=== PATIENT | male | born 1970 | race Caucasian/White ===

== ENCOUNTER 2020-11-18 11:36 | Emergency (ER) | payer BC, SELFPAY ==
[2020-11-18 11:44] VITALS: BP 135/80; PULSE 85; RESP 16; TEMP 36.8; O2SAT 98; BMI 29.8
--- NOTE | 2020-11-18 12:20 | ECG_ITS ---
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
--- NOTE | 2020-11-18 12:20 | XRR_ITS ---
PROCEDURE INFORMATION: Exam: XR Chest Exam date and time: 11/18/2020 12:24 PM Age: 50 years old Clinical indication: Shortness of breath; Chest pain; Type not specified; Additional info: Cp TECHNIQUE: Imaging protocol: XR of the chest Views: 1 view. COMPARISON: CT Chest/Abdomen/Pelvis w IV* 03/14/2018 2:06 PM FINDINGS: Lungs: Hypoinflation and mild interstitial prominence without acute airspace disease. Pleural spaces: No pleural effusion. Heart/Mediastinum: No cardiomegaly. Bones/joints: Mild degenerative change. XR/XR chest 1V portable [id number] IMPRESSION: No acute airspace or pleural disease.
--- NOTE | 2020-11-18 12:23 | W.ED.CHESTPA ---
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 The day after which is yesterday noticed left-sided chest pain radiating down his arm and his shoulder that he attributed to the chest compressions that he had done. However he also noticed some dizziness, lightheadedness, and the pain is getting worse. The pain is also only on the left and is not on the right which she would have expected that he would be bilateral for his chest compressions. He was recently diagnosed with diabetes mellitus and was started on Metformin. He therefore wants to be evaluated. MD complaint: chest pain Onset (ago): day(s) (1) Timing of current episode: episodic Prior episodes: Yes Onset: during rest Pain location: left chest Pain radiation: left shoulder and other (left ear) Severity: moderate Quality: sharp Relieving factors: nothing Exacerbating factors: nothing Associated symptoms: Reports dyspnea; Deny abdominal pain, diaphoresis, fever(s), leg edema, nausea, palpitations, sense of impending doom, syncope or vomiting Review of Systems General: Reports: 10 or more systems reviewed and unremarkable except in HPI and below Const: Denies: fever(s) or diaphoresis Card: Denies: palpitations or syncope Resp: Reports: dyspnea GI: Denies: abdominal pain, nausea or vomiting Neuro: Reports: dizziness Physical Exam Const: COMMON NORMALS: no acute distress, average body habitus, patient oriented x3, no limitations, healthy appearing, alert and well nourished HENMT: COMMON NORMALS: normocephalic, atraumatic and moist oral mucous membranes HEAD & SCALP: normocephalic and atraumatic Neck/C-Spine: COMMON NORMALS: no meningeal signs and no JVD Chest: COMMONS NORMALS: normal inspection of the chest and normal palpation of entire chest wall Resp: COMMON NORMALS: normal respiratory effort, No retractions, No use of accessory muscles, clear to auscultation bilaterally and percussion normal AUSCULTATION: clear to auscultation bilaterally PERCUSSION: percussion normal Cardio: COMMON NORMALS: no JVD, regular rate, regular rhythm, S1 normal heart sound present, S2 normal heart sound present, No gallops present (Cardio), No clicks present (Cardio), No murmurs present (Cardio), No rub (Cardio) and Peripheral pulses 2+ throughout RATE: regular rate RHYTHM: regular rhythm HEART SOUNDS: S1 normal heart sound present and S2 normal heart sound present PERIPHERAL PULSES: Peripheral pulses 2+ throughout GI: COMMON NORMALS: Normal to inspection, nondistended, normoactive bowel sounds present, Soft to palpation, non-tender, No hepatosplenomegaly present, no masses and no bruits PALPATION: Yes Soft to palpation and Yes No hepatosplenomegaly present Extremity: COMMON NORMALS: normal to inspection, full ROM, capillary refill normal, no calf tenderness and no pedal edema Neuro: COMMON NORMALS: patient oriented x3 SENSORIUM/ORIENTATION: Yes alert MENINGEAL SIGNS: Yes no meningeal signs Skin: COMMON NORMALS: no rashes or lesions noted, no wounds, turgor normal, no jaundice, no petechiae and no mottling GENERAL SKIN EXAM: no rashes or lesions noted and turgor normal Course Reevaluation(s): Reevaluation #1: Discussed his labs and imaging findings with him, unremarkable with negative HS troponin x 2. HEART score is 2, low risk for a MACE with a 1.7% risk for a MACE. He is discharged home with no new orders, and to f/u with his PCP. He voiced understanding and all questions answered. Time: 16:18 Vital Signs: Vital signs: Vital Signs Temperature 98.2 F 11/18/20 11:44 Pulse Rate 97 11/18/20 16:43 Respiratory Rate 11 L 11/18/20 16:43 Blood Pressure 156/88 11/18/20 16:43 Pulse Oximetry 99 11/18/20 16:43 MDM - Chest Pain MDM Narrative: Medical decision making narrative: 50 year old male with chest pain. Evaluation in the ED was negative for a cardiac cause of his pain. He is discharged home with no new orders. Medical Records: Attestation: I reviewed the patient's medical records. Lab Data: Attestation: I reviewed the patient's lab results. Labs: Lab Results 11/18/20 11/18/20 11/18/20 Range/Units 12:00 12:00 12:00 WBC 5.3 (4.0-10.0) 10^3/ uL RBC 4.73 (4.1-5.3) 10^6/u L Hgb 14.3 (11.7-16.6) g/dL Hct 42.3 (42.0-52.0) % MCV 89.4 (80-94) fL MCH 30.2 (28.0-34.0) pg MCHC 33.8 (30.0-36.0) g/dL RDW 12.9 (12.1-15.1) % Plt Count 275 (130-400) 10^3/c mm MPV 10.1 (7.4-10.4) fL Neut % (Auto) 70.7 % Lymph % (Auto) 20.9 % [place] % (Auto) 6.2 % Eos % (Auto) 0.8 % Baso % (Auto) 0.8 % Neut # (Auto) 3.75 (1.8-7.7) 10^3/u L Lymph # (Auto) 1.1 (0.8-4.8) 10^3/u L [place] # (Auto) 0.3 (0.2-0.9) 10^3/u L Eos # (Auto) 0.0 (0.0-0.8) 10^3/u L Baso # (Auto) 0.0 (0.0-0.1) 10^3/u L Nucleated RBC % (a uto) 0 % Nucleated RBCs # 0.0 /100WBC PT 12.70 (12.1-14.9) SECO NDS INR 0.93 (0.8-1.2) D-Dimer <= 0.27 (0-0.59) ug/mIFE U Sodium 138 (136-145) mmol/L Potassium 4.5 (3.5-5.1) mmol/L Chloride 101 (98-107) mmol/L Carbon Dioxide 26 (22-29) mmol/L Anion Gap 15.5 (5-19) BUN 16 (6-20) mg/dL Creatinine 1.0 (0.7-1.2) mg/dL GFR Calculation 79.8 L (90-130) mL/min Glucose 118 H (65-115) mg/dL Calculated Osmolal ity 288 (285-295) mOsm/k g Calcium 9.5 (8.5-10.5) mg/dL Total Bilirubin 0.4 (0.15-1.2) mg/dL AST 20 (0-40) U/L ALT 41 (0-41) U/L Alkaline Phosphata se 99 (40-130) IU/L Troponin T Baselin e (0-15) ng/L Troponin T 120 Min [place] (0-15) ng/L Delta Troponin T (0-10) ABS# NT-Pro-B Natriuret Pep 42 (0-125) pg/mL Total Protein 7.5 (6.6-8.7) g/dL Albumin 5.0 (3.5-5.2) g/dL Globulin 2.5 (1.3-4.6) g/dL Lipase 37 (13-60) U/L 11/18/20 11/18/20 Range/Units 12:00 13:58 WBC (4.0-10.0) 10^3/ uL RBC (4.1-5.3) 10^6/u L Hgb (11.7-16.6) g/dL Hct (42.0-52.0) % MCV (80-94) fL MCH (28.0-34.0) pg MCHC (30.0-36.0) g/dL RDW (12.1-15.1) % Plt Count (130-400) 10^3/c mm MPV (7.4-10.4) fL Neut % (Auto) % Lymph % (Auto) % [place] % (Auto) % Eos % (Auto) % Baso % (Auto) % Neut # (Auto) (1.8-7.7) 10^3/u L Lymph # (Auto) (0.8-4.8) 10^3/u L [place] # (Auto) (0.2-0.9) 10^3/u L Eos # (Auto) (0.0-0.8) 10^3/u L Baso # (Auto) (0.0-0.1) 10^3/u L Nucleated RBC % (a uto) % Nucleated RBCs # /100WBC PT (12.1-14.9) SECO NDS INR (0.8-1.2) D-Dimer (0-0.59) ug/mIFE U Sodium (136-145) mmol/L Potassium (3.5-5.1) mmol/L Chloride (98-107) mmol/L Carbon Dioxide (22-29) mmol/L Anion Gap (5-19) BUN (6-20) mg/dL Creatinine (0.7-1.2) mg/dL GFR Calculation (90-130) mL/min Glucose (65-115) mg/dL Calculated Osmolal ity (285-295) mOsm/k g Calcium (8.5-10.5) mg/dL Total Bilirubin (0.15-1.2) mg/dL AST (0-40) U/L ALT (0-41) U/L Alkaline Phosphata se (40-130) IU/L Troponin T Baselin e 6 (0-15) ng/L Troponin T 120 Min [place] 6.00 (0-15) ng/L Delta Troponin T 0 (0-10) ABS# NT-Pro-B Natriuret Pep (0-125) pg/mL Total Protein (6.6-8.7) g/dL Albumin (3.5-5.2) g/dL Globulin (1.3-4.6) g/dL Lipase (13-60) U/L Imaging Data^: CXR: Attestation: I personally reviewed and interpreted this imaging study as follows: Radiologist's impression: [address] [address] XRay Report Signed Patient: Rajesh Wilkins #: [id number] : 1970Acct#:[id number] Age/Sex: 50 / MADM Date: 11/18/20 Loc: ERRoom/Bed: Attending Dr: Ordering Provider/Ordering MD: Flavia Adams MD, [facility] [place] Date of Service: 11/18/20 Procedure(s): XR chest 1V portable [id number] Accession Number(s): [id number] Report Number: [id number] PROCEDURE INFORMATION: Exam: XR Chest Exam date and time: 11/18/2020 12:24 PM Age: 50 years old Clinical indication: Shortness of breath; Chest pain; Type not specified; Additional info: Cp TECHNIQUE: Imaging protocol: XR of the chest Views: 1 view. COMPARISON: CT Chest/Abdomen/Pelvis w IV* 03/14/2018 2:06 PM FINDINGS: Lungs: Hypoinflation and mild interstitial prominence without acute airspace disease. Pleural spaces: No pleural effusion. Heart/Mediastinum: No cardiomegaly. Bones/joints: Mild degenerative change. XR/XR chest 1V portable [id number] IMPRESSION: No acute airspace or pleural disease. Dictated By:Selvin Jose MD Signed By:Selvin Jose MDSigned Date/Time:11/18/201311 DD/ 131 EKG Data^: EKG 1: Attestation: I personally reviewed and interpreted this EKG as follows: EKG interpretation date: 11/18/20 EKG interpretation time: 11:43 Prior EKG tracings: not available for review Interpretation: Sinus rhythm. Heart rate 88 bpm. Normal axis. No ST changes. Normal EKG. Discharge Plan Discharge Patient Disposition: Home Clinical Impression: Chest pain Condition: Stable Prescriptions: Continued paroxetine HCl 10 mg tablet 10 mg PO DAILY RF: 0 metoprolol succinate 25 mg tablet extended release 24 hr 25 mg PO DAILY RF: 0 metformin 500 mg tablet extended release 24 hr 500 mg PO BEDTIME RF: 0 Discharge Orders: Discharge ED (Routine); Ordered 11/18/20 Ordered By: Flavia Adams Referrals: Benny Davis MD [Primary Care Provider] - 1-3 days Discharge Diet: Usual diet Discharge Activity: Increase activity as tolerated Patient Instructions: Chest Pain (ED) Activity Restrictions/Additional Instructions: Return for any new or worsening symptoms. Follow-up with your primary care provider within 3 days. You will be contacted to schedule an outpatient stress test. Following the results of the test might need further testing or you may be clear. Stand Alone Forms: Work/School Release Coding Level of Care Code ED Quill Machine Tender for Chg Fwd Exam Comprehensive
[2020-11-18 12:34] LABS: Basophils % 0.8 %; Eosinophils % 0.8 %; Hematocrit 42.3 % (42.0-52.0); Hemoglobin 14.3 g/dL (11.7-16.6); Lymphocytes # 1.1 10^3/uL (0.8-4.8); Lymphocytes % 20.9 %; Mean Corpuscular HGB Conc 33.8 g/dL (30.0-36.0); Mean Corpuscular Hemoglobin 30.2 pg (28.0-34.0); Mean Corpuscular Volume 89.4 fL (80-94); Mean Platelet Volume 10.1 fL (7.4-10.4); Monocytes # 0.3 10^3/uL (0.2-0.9); Monocytes % 6.2 %; Neutrophils # 3.75 10^3/uL (1.8-7.7); Neutrophils % 70.7 %; Nucleated Red Blood Cells % 0 %; Platelet Count 275 10^3/cmm (130-400); Red Blood Count 4.73 10^6/uL (4.1-5.3); Red Cell Distribution Width 12.9 % (12.1-15.1); White Blood Count 5.3 10^3/uL (4.0-10.0)
[2020-11-18 12:37] VITALS: BP 120/88; PULSE 88; RESP 12; O2SAT 97
[2020-11-18 12:53] LABS: INR 0.93 (0.8-1.2)
[2020-11-18 12:55] LABS: D Dimer <= 0.27 ug/mIFEU (0-0.59); Troponin(5th) Baseline 6 ng/L (0-15)
[2020-11-18 13:01] LABS: Alanine Aminotransferase 41 U/L (0-41); Alkaline Phosphatase 99 IU/L (40-130); Anion Gap 15.5 (5-19); Aspartate Amino Transferase 20 U/L (0-40); Blood Urea Nitrogen 16 mg/dL (6-20); Calcium 9.5 mg/dL (8.5-10.5); Carbon Dioxide 26 mmol/L (22-29); Chloride 101 mmol/L (98-107); Globulin 2.5 g/dL (1.3-4.6); Glomerular Filtration Rate 79.8 mL/min (90-130); Glucose 118 mg/dL (65-115); Lipase 37 U/L (13-60); NT Pro B Type Natriuretic Pept 42 pg/mL (0-125); Osmolality Calculated 288 mOsm/kg (285-295); Potassium 4.5 mmol/L (3.5-5.1); Sodium 138 mmol/L (136-145); Total Bilirubin 0.4 mg/dL (0.15-1.2); Total Protein 7.5 g/dL (6.6-8.7)
[2020-11-18 14:07] VITALS: BP 146/83; PULSE 78; RESP 16; O2SAT 97
[2020-11-18 14:32] LABS: Troponin 5 2HR Delta 0 ABS# (0-10)
[2020-11-18 16:41] VITALS: BP 156/88; PULSE 97; RESP 11; O2SAT 99
[2020-11-18 16:43] VITALS: BP 156/88; PULSE 97; RESP 11; O2SAT 99
--- NOTE | 2020-11-20 10:01 | DCPLANNER ---
financial institution branch manager had a message to schedule an outpatient stress test for patient. financial institution branch manager faxed signed order to centralized scheduling. financial institution branch manager will call for appointment information.
--- NOTE | 2020-11-25 09:24 | DCPLANNER ---
[employer] manager was contacted stating that patients insurance requires a peer to peer from the ER physician, for the stress test. [employer] manager contacted patient and let patient know that patient will need to follow up with his primary care physician, and have him order the stress test. Patient stated that the he would follow up with his primary care physician.
== END 2020-11-18 16:46 | disposition home or self-care (01) ==
PROVIDERS: Emergency Provider Family Medicine; PCP Family Medicine
DX: R07.9 Chest pain, unspecified (principal); Z79.84 Long term (current) use of oral hypoglycemic drugs
CPT/HCPCS: 36415; 71045; 80053; 83690; 83880; 84484; 85025; 85378; 85610; 93005; 99284; 99291

== ENCOUNTER → 2020-11-26 15:38 | Outpatient (BNVA) | payer BC, SELFPAY | PROVIDERS: PCP Family Medicine; Visit Provider Counselor Mental Health | DX: F43.10 Post-traumatic stress disorder, unspecified (principal) | CPT/HCPCS: 90791 ==

== ENCOUNTER → 2020-12-04 07:52 | Outpatient (BNVA) | payer BC, SELFPAY | PROVIDERS: PCP Family Medicine; Visit Provider Counselor Mental Health | DX: F43.11 Post-traumatic stress disorder, acute (principal) | CPT/HCPCS: 90834 ==

== ENCOUNTER → 2020-12-11 07:49 | Outpatient (BNVA) | payer BC, SELFPAY | PROVIDERS: PCP Family Medicine; Visit Provider Counselor Mental Health | DX: F43.11 Post-traumatic stress disorder, acute (principal) | CPT/HCPCS: 90834 ==

== ENCOUNTER → 2020-12-18 08:10 | Outpatient (BNVA) | payer BC, SELFPAY | PROVIDERS: PCP Family Medicine; Visit Provider Counselor Mental Health | DX: F43.11 Post-traumatic stress disorder, acute (principal); F43.21 Adjustment disorder with depressed mood | CPT/HCPCS: 90834 ==

== ENCOUNTER → 2020-12-24 07:41 | Outpatient (BNVA) | payer BC, SELFPAY | PROVIDERS: PCP Family Medicine; Visit Provider Counselor Mental Health | DX: F43.11 Post-traumatic stress disorder, acute (principal) | CPT/HCPCS: 90834 ==

== ENCOUNTER 2020-12-25 07:36 | Outpatient (CLI) | payer BC, SELFPAY ==
[2020-12-25 08:54] VITALS: BMI 28.4
--- NOTE | 2020-12-25 08:55 | ECG_ITS ---
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 Baseline heart rate was 81 beats per minute. Baseline blood pressure was 135/76 millimeters of mercury. Target heart rate was 172 beats per minute. Maximum heart rate achieved was 153, which was 88 % of the target heart rate. Maximum blood pressure was 202/94 millimeters of mercury. Total exercise time was 9 minutes 31 seconds. Maximum METs achieved was 10.2, maximum VO2 was 35.7. The reason for ending the test was maximum effort achieved. The patient complained of shortness of breath during the stress test, which then resolved at the end of the test. ELECTROCARDIOGRAM: BASELINE: Showed sinus rhythm, normal axis, no significant ST-T changes at the baseline noted. EXERCISE: At the peak exercise level, no significant ST-T changes suggestive of ischemia noted. RECOVERY: During the recovery period, heart rate dropped appropriately. No significant ST-T changes in the recovery suggestive of ischemia noted. CONCLUSION: 1. Exercise capacity good. 2. Heart rate response was appropriate. 3. Blood pressure response was hypertensive. 4. Symptoms not suggestive of ischemia. 5. Electrocardiogram portion of the stress test was not suggestive of ischemia. Electronically Signed On 01-06-2021 19:07:31 CDT by CIERRA VELIZ [id number]
--- NOTE | 2020-12-25 08:55 | NMCV_ITS ---
NM dionte perf SPECT r/s* [id number] Rajesh Wilkins Age: 50 Gender: M : 1970 Exam Date: 12/25/2020 09:07 Ordering Phys: Benny Davis MD Technologist: YAYA Shannon Exam Location: [facility] Indications: CHEST PAIN STRESS TEST Please see separate stress test report in [facility] for full findings IMAGE PROTOCOL Rest/Stress 1 Exercise Day Radiopharmaceutical Dose (mCi) Administration Site Administered by Rest: Tc-99m 10.9 IV YAYA Montes Sestamishamir Stress:Tc-99m 32.6 IV YAYA Montes Sestamibi Rest: 25-Dec-2020 60 Discovery 630 Stress: 25-Dec-2020 30 Discovery 630 Radiopharmaceutical was injected at 85 % maximum heart rate. Images obtained in supine and prone position. SPECT RESULTS Technical Quality: Excellent Raw Data Analysis: Normal Image Corrections: No attenuation or motion correction applied Summed Stress Score: 0 Summed Rest Score: 0 Summed Difference Score: 0 PERFUSION FINDINGS SPECT images demonstrate homogeneous tracer distribution throughout the myocardium. FUNCTIONAL RESULTS (calculated via Gated SPECT) Stress Image LV EF (%): 74 Stress EDV (mL):62 TID: 0.67 Stress ESV (mL):16 Rest Image LV EF (%): 74 FUNCTIONAL FINDINGS: There is normal left ventricular systolic function. IMPRESSIONS Myocardial perfusion imaging is normal and low probability for obstructive coronary disease. EKG segment will be documented separately. Jerardo Woodruff MD (Electronically Signed) Final Date: 25 Dec 2020 15:10 S
[2020-12-25 10:03] VITALS: BP 148/90; PULSE 94
== END 2020-12-25 07:37 | disposition home or self-care (01) ==
PROVIDERS: PCP Family Medicine; Visit Provider Family Medicine
DX: R07.9 Chest pain, unspecified (principal)
CPT/HCPCS: 78452; 93017; A9500

== ENCOUNTER → 2020-12-31 08:01 | Outpatient (BNVA) | payer BC, SELFPAY | PROVIDERS: PCP Family Medicine; Visit Provider Counselor Mental Health | DX: F43.11 Post-traumatic stress disorder, acute (principal); F43.21 Adjustment disorder with depressed mood | CPT/HCPCS: 90834 ==

== ENCOUNTER 2021-07-27 07:47 | Emergency (ER) | payer BC, SELFPAY ==
[2021-07-27 07:59] VITALS: BP 149/94; PULSE 75; RESP 16; TEMP 36.9; O2SAT 100; BMI 28.1
--- NOTE | 2021-07-27 08:11 | CT_ITS ---
WS: [id number] CT ABDOMEN AND PELVIS NONCONTRAST HISTORY: L flank pain TECHNIQUE: Imaging performed through the abdomen and pelvis. Coronal and sagittal reformats are submi tted. All CT scans at [facility] use at least one of these dose optimization techniques: auto mated exposure control; mA and/or kV adjustment per patient size (includes targeted exams where dose is matched to clinical indication); or iterative reconstruction. DLP: 1378.64 mGy.cm COMPARISON: 03/14/2018 Lower thorax: Lung bases are clear. Visualized heart is normal. No hiatal hernia. Liver: Mild hepatic steatosis and enlargement. No mass or bile duct dilatation identified. Gallbladder: Normal gallbladder. Pancreas: Normal size and attenuation. Normal pancreatic duct. No pancreatitis or mass. Spleen: Normal. Adrenal glands: Normal. No mass. Right kidney: Normal size kidney with mild perinephric stranding. Nonobstructing 2 mm calcification. Vague low-attenuation lesion in the mid kidney is noted to be a cyst on a prior study. No hydronephro sis. Left kidney: There is extensive perinephric stranding. There is thickening and edema along the perire nal fascia. Mild hydronephrosis and hydroureter. There is extensive stranding and edema surrounding t he ureter with a 5 mm calcification at the UV junction. There is an additional nonobstructing calcifi cation in the upper pole. Aorta: Normal abdominal aorta, no aneurysm or atherosclerosis. No free fluid, intraperitoneal air or significant lymphadenopathy. GI tract: Normal appendix. No obstruction. No diverticular disease. Abdominal wall: Small umbilical hernia contains fat only. Pelvis: Well-distended urinary bladder. No free fluid or adenopathy. Osseous structures: Unremarkable. CT/CT kidney stone 01106 IMPRESSION: 1. Mild LEFT hydroureteronephrosis secondary to a 5 mm calcification at the UV junction. There is significant perinephric stranding with no abscess identifie d. 2. Additional nonobstructing very small bilateral renal calculi. 3. Normal appendix.
--- NOTE | 2021-07-27 08:11 | W.ED.MALEGU ---
Documented by User: GRAEME Lagos 07/27/21 12:50 HPI - Male Genitourinary General: Chief complaint: Urogenital-Male Stated complaint: KIDNEY STONE RELATED PAIN Time Seen by Provider: 07/27/21 07:57 Source: patient Mode of arrival: ambulatory Limitations: no limitations History of Present Illness: HPI Narrative: Patient is a 50-year-old male who presents to ED today with a complaint of left flank pain that began fairly suddenly around 10:30 PM yesterday evening. Patient states he does have a history of kidney stones and states the pain feels identical. He complains of urinary urgency and hesitancy. He has not noticed any hematuria or urine color change. He has not had any episodes of vomiting. He has never required lithotripsy or ureter stenting for previous stones. No fevers. He does state pain seems to radiate into the left side of his abdomen into his testicle. MD Complaint: other (flank pain) Onset (ago): hour(s) Duration: constant Location: left flank Radiation: abdomen Severity: similar to previous episodes Quality: sharp Relieving factors: none Exacerbating factors: movement Associated symptoms: Reports nausea; Deny dysuria, hematuria or vomiting Review of Systems Const: Denies: fever(s), chills, body aches, fatigue or malaise Card: Denies: chest pain Resp: Denies: dyspnea GI: Reports: abdominal pain and nausea; Denies: vomiting or diarrhea : Reports: flank pain, urinary urgency, urinary hesitancy and testicular pain; Denies: difficulty urinating, dysuria, urinary frequency, hematuria, genital lesions, penile discharge, testicular mass or scrotal swelling Musc: Reports: back pain (L flank); Denies: neck pain, extremity pain, extremity swelling, joint pain or joint swelling Skin/Breast: Denies: rash Neuro: Denies: headache(s) or dizziness Physical Exam Const: COMMON NORMALS: average body habitus, patient oriented x3, no limitations, healthy appearing, alert and well nourished GENERAL APPEARANCE: cooperative and in distress (appears uncomfortable secondary to pain) HENMT: COMMON NORMALS: normocephalic and atraumatic HEAD & SCALP: normocephalic and atraumatic Resp: COMMON NORMALS: normal respiratory effort and clear to auscultation bilaterally AUSCULTATION: clear to auscultation bilaterally Cardio: COMMON NORMALS: regular rate and regular rhythm RATE: regular rate RHYTHM: regular rhythm GI: COMMON NORMALS: Normal to inspection, nondistended, normoactive bowel sounds present, Soft to palpation, No hepatosplenomegaly present and no masses INSPECTION: Yes normal to inspection PALPATION: Yes Soft to palpation, Yes Tenderness to palpation present (GI) (throughout L lateral/lower abdomen) and Yes No hepatosplenomegaly present : BLADDER/KIDNEY EXAM: Yes CVA tenderness (L just below CVA) Back/Pelvis: GENERAL BACK: Yes CVA tenderness (L just below CVA) Extremity: COMMON NORMALS: normal to inspection Neuro: COMMON NORMALS: patient oriented x3 SENSORIUM/ORIENTATION: Yes alert Skin: COMMON NORMALS: no rashes or lesions noted GENERAL SKIN EXAM: no rashes or lesions noted Course Consultations: Consultation #1: Dr. Malik-will see this week in office Vital Signs: Vital signs: Vital Signs Temperature 98.5 F 07/27/21 07:59 Pulse Rate 88 07/27/21 12:24 Respiratory Rate 15 07/27/21 12:24 Blood Pressure 141/94 07/27/21 12:24 Pulse Oximetry 98 07/27/21 12:24 MDM - Male MDM Narrative: Medical decision making narrative: Patient here with a 5 mm stone to his UVJ. Pain was controlled here. UA is negative for infection. He does have a mildly elevated creatinine at 1.7. Spoke to Dr. Malik in regards to his creatinine who recommended seeing him in office this week. Patient will be placed on pain/nausea meds, flomax, and given urine strainer. Strict return to ED precautions given. Lab Data: Attestation: I reviewed the patient's lab results. Labs: Lab Results 07/27/21 07/27/21 07/27/21 08:10 08:10 10:53 WBC 8.5 10^3/uL 10^3/ uL (4.0-10.0) RBC 4.69 10^6/uL 10^6 /uL (4.1-5.3) Hgb 13.9 g/dL g/dL (11.7-16.6) Hct 41.3 % L % (42.0-52.0) MCV 88.1 fl fl (80-94) MCH 29.6 pg pg (28.0-34.0) MCHC 33.7 g/dL g/dL (30.0-36.0) RDW 12.3 % % (12.1-15.1) Plt Count 185 10^3/cmm 10^3 /cmm (130-400) MPV 9.7 fL fL (7.4-10.4) Neut % (Auto) 77.2 % % Lymph % (Auto) 13.8 % % Zavala % (Auto) 7.2 % % Eos % (Auto) 0.9 % % Baso % (Auto) 0.4 % % Neut # (Auto) 6.53 10^3/uL 10^3 /uL (1.8-7.7) Lymph # (Auto) 1.2 10^3/uL 10^3/ uL (0.8-4.8) Zavala # (Auto) 0.6 10^3/uL 10^3/ uL (0.2-0.9) Eos # (Auto) 0.1 10^3/uL 10^3/ uL (0.0-0.8) Baso # (Auto) 0.0 10^3/uL 10^3/ uL (0.0-0.1) Nucleated RBC % (a uto) 0 % % Nucleated RBCs # 0.0 /100WBC /100W BC Sodium 139 mmol/L mmol/L (136-145) Potassium 4.6 mmol/L mmol/L (3.5-5.1) Chloride 104 mmol/L mmol/L (98-107) Carbon Dioxide 21 mmol/L L mmol/ L (22-29) Anion Gap 18.6 (5-19) BUN 19 mg/dL mg/dL (6-20) Creatinine 1.7 mg/dL H mg/dL (0.7-1.2) GFR Calculation 43.2 mL/min L mL/ min (90-130) Glucose 128 mg/dL H mg/dL (65-115) Calculated Osmolal ity 292 mOsm/kg mOsm/ kg (285-295) Calcium 8.8 mg/dL mg/dL (8.5-10.5) Total Bilirubin 0.2 mg/dL mg/dL (0.15-1.2) AST 16 U/L U/L (0-40) ALT 23 U/L U/L (0-41) Alkaline Phosphata se 99 IU/L IU/L (40-130) Total Protein 6.6 g/dL g/dL (6.6-8.7) Albumin 4.2 g/dL g/dL (3.5-5.2) Globulin 2.4 g/dL g/dL (1.3-4.6) Urine Color Yellow (Yellow) Urine Appearance Clear (CLEAR) Urine pH 5 (5-7) Ur Specific Gravit y 1.020 (1.005-1.030) Urine Protein Neg (Negative) Urine Glucose (UA) Norm (Normal) Urine Ketones Negative (Negative) Urine Blood Neg (Negative) Urine Nitrate Negative (Negative) Urine Bilirubin Neg (Negative) Urine Urobilinogen Norm mg/dL mg/dL (Negative) Ur Leukocyte Mary ase Negative (Negative) Imaging Data: CT renal: Radiologist's impression: [employer] [id number] Scan ReportSigned Patient: Rajesh Wilkins #: [id number]: 1970Acct#:[id number]/Sex: 50 / MADM Date: 07/27/21Loc: ERRoom/Bed:Attending Dr: Ordering Provider/Ordering MD: Elsie Belcher Date of Service: 07/27/21 Procedure(s): CT kidney stone 92554 Accession Number(s): [id number] Report Number: [id number] WS: [id number] CT ABDOMEN AND PELVIS NONCONTRAST HISTORY: L flank pain TECHNIQUE: Imaging performed through the abdomen and pelvis. Coronal and sagittal reformats are submitted. [facility] use at least one of these dose optimization techniques: automated exposure control; mA and/or kV adjustment per patient size (includes targeted exams where dose is matched to clinical indication); or iterative reconstruction. DLP: 1378.64 mGy.cm COMPARISON: 03/14/2018 Lower thorax: Lung bases are clear. Visualized heart is normal. No hiatal hernia. Liver: Mild hepatic steatosis and enlargement. No mass or bile duct dilatation identified. Gallbladder: Normal gallbladder. Pancreas: Normal size and attenuation. Normal pancreatic duct. No pancreatitis or mass. Spleen: Normal. Adrenal glands: Normal. No mass. Right kidney: Normal size kidney with mild perinephric stranding. Nonobstructing 2 mm calcification. Vague low-attenuation lesion in the mid kidney is noted to be a cyst on a prior study. No hydronephrosis. Left kidney: There is extensive perinephric stranding. There is thickening and edema along the perirenal fascia. Mild hydronephrosis and hydroureter. There is extensive stranding and edema surrounding the ureter with a 5 mm calcification at the UV junction. There is an additional nonobstructing calcification in the upper pole. Aorta: Normal abdominal aorta, no aneurysm or atherosclerosis. No free fluid, intraperitoneal air or significant lymphadenopathy. GI tract: Normal appendix. No obstruction. No diverticular disease. Abdominal wall: Small umbilical hernia contains fat only. Pelvis: Well-distended urinary bladder. No free fluid or adenopathy. Osseous structures: Unremarkable. CT/CT kidney stone 52590 IMPRESSION: 1. Mild LEFT hydroureteronephrosis secondary to a 5 mm calcification at the UV junction. There is significant perinephric stranding with no abscess identified. 2. Additional nonobstructing very small bilateral renal calculi. 3. Normal appendix. Dictated By:Bailee Crespo DOSigned By:Bailee Crespo DOSigned Date/Time:07/27/21907DD/ 2 Discharge Plan Discharge Patient Disposition: Home Clinical Impression: Calculus of ureterovesical junction (UVJ) Condition: Stable Prescriptions: New hydrocodone-acetaminophen 5-325 mg tablet 1 tab PO Q4H PRN (Reason: pain) Qty: 15 RF: 0 Zofran 4 mg tablet 4 mg PO Q6H PRN (Reason: nausea and vomiting) Qty: 14 RF: 0 Flomax 0.4 mg capsule 0.4 mg PO DAILY Qty: 10 RF: 0 No Action paroxetine HCl 10 mg tablet 10 mg PO DAILY RF: 0 metoprolol succinate 25 mg tablet extended release 24 hr 25 mg PO DAILY RF: 0 metformin 500 mg tablet extended release 24 hr 500 mg PO BEDTIME RF: 0 Discharge Orders: Discharge ED (Routine); Ordered 07/27/21 Ordered By: Elsie Belcher Referrals: Didier Malik MD [Physician] - Benny Davis MD [Primary Care Provider] - Patient Instructions: Ureteral Stones (ED) Activity Restrictions/Additional Instructions: As we discussed case management should contact you shortly to set you up to see Dr. Malik this week for further evaluation. You need to continue to push fluids as much as possible. Begin straining your urine with a strainer provided and bring stone with you to urology appointment if you pass it. You need to return to the emergency department for worsening or uncontrollable pain, inability to hold down your medications, fevers greater than 100.4, or any other concerns you may have. I hope you begin to feel better soon. Coding Level of Care Code ED [employer] Manager for Chg Fwd Exam Comprehensive Documented by User: Juan Ramon Winkler DO 07/27/21 15:37 HPI - Male Genitourinary General: Chief complaint: Urogenital-Male Stated complaint: KIDNEY STONE RELATED PAIN Time Seen by Provider: 07/27/21 07:57 Course Vital Signs: Vital signs: Vital Signs Temperature 98.5 F 07/27/21 07:59 Pulse Rate 88 07/27/21 12:24 Respiratory Rate 15 07/27/21 12:24 Blood Pressure 141/94 07/27/21 12:24 Pulse Oximetry 98 07/27/21 12:24 MDM - Male MDM Narrative: Medical decision making narrative: Chart reviewed and patient discussed with midlevel. Agree with assessment and plan. Lab Data: Labs: Lab Results 07/27/21 07/27/21 07/27/21 08:10 08:10 10:53 WBC 8.5 10^3/uL 10^3/ uL (4.0-10.0) RBC 4.69 10^6/uL 10^6 /uL (4.1-5.3) Hgb 13.9 g/dL g/dL (11.7-16.6) Hct 41.3 % L % (42.0-52.0) MCV 88.1 fl fl (80-94) MCH 29.6 pg pg (28.0-34.0) MCHC 33.7 g/dL g/dL (30.0-36.0) RDW 12.3 % % (12.1-15.1) Plt Count 185 10^3/cmm 10^3 /cmm (130-400) MPV 9.7 fL fL (7.4-10.4) Neut % (Auto) 77.2 % % Lymph % (Auto) 13.8 % % Zavala % (Auto) 7.2 % % Eos % (Auto) 0.9 % % Baso % (Auto) 0.4 % % Neut # (Auto) 6.53 10^3/uL 10^3 /uL (1.8-7.7) Lymph # (Auto) 1.2 10^3/uL 10^3/ uL (0.8-4.8) Zavala # (Auto) 0.6 10^3/uL 10^3/ uL (0.2-0.9) Eos # (Auto) 0.1 10^3/uL 10^3/ uL (0.0-0.8) Baso # (Auto) 0.0 10^3/uL 10^3/ uL (0.0-0.1) Nucleated RBC % (a uto) 0 % % Nucleated RBCs # 0.0 /100WBC /100W BC Sodium 139 mmol/L mmol/L (136-145) Potassium 4.6 mmol/L mmol/L (3.5-5.1) Chloride 104 mmol/L mmol/L (98-107) Carbon Dioxide 21 mmol/L L mmol/ L (22-29) Anion Gap 18.6 (5-19) BUN 19 mg/dL mg/dL (6-20) Creatinine 1.7 mg/dL H mg/dL (0.7-1.2) GFR Calculation 43.2 mL/min L mL/ min (90-130) Glucose 128 mg/dL H mg/dL (65-115) Calculated Osmolal ity 292 mOsm/kg mOsm/ kg (285-295) Calcium 8.8 mg/dL mg/dL (8.5-10.5) Total Bilirubin 0.2 mg/dL mg/dL (0.15-1.2) AST 16 U/L U/L (0-40) ALT 23 U/L U/L (0-41) Alkaline Phosphata se 99 IU/L IU/L (40-130) Total Protein 6.6 g/dL g/dL (6.6-8.7) Albumin 4.2 g/dL g/dL (3.5-5.2) Globulin 2.4 g/dL g/dL (1.3-4.6) Urine Color Yellow (Yellow) Urine Appearance Clear (CLEAR) Urine pH 5 (5-7) Ur Specific Gravit y 1.020 (1.005-1.030) Urine Protein Neg (Negative) Urine Glucose (UA) Norm (Normal) Urine Ketones Negative (Negative) Urine Blood Neg (Negative) Urine Nitrate Negative (Negative) Urine Bilirubin Neg (Negative) Urine Urobilinogen Norm mg/dL mg/dL (Negative) Ur Leukocyte Mary ase Negative (Negative) Discharge Plan Discharge Patient Disposition: Home Clinical Impression: Calculus of ureterovesical junction (UVJ) Condition: Stable Prescriptions: New hydrocodone-acetaminophen 5-325 mg tablet 1 tab PO Q4H PRN (Reason: pain) Qty: 15 RF: 0 Zofran 4 mg tablet 4 mg PO Q6H PRN (Reason: nausea and vomiting) Qty: 14 RF: 0 Flomax 0.4 mg capsule 0.4 mg PO DAILY Qty: 10 RF: 0 No Action paroxetine HCl 10 mg tablet 10 mg PO DAILY RF: 0 metoprolol succinate 25 mg tablet extended release 24 hr 25 mg PO DAILY RF: 0 metformin 500 mg tablet extended release 24 hr 500 mg PO BEDTIME RF: 0 Discharge Orders: Discharge ED (Routine); Ordered 07/27/21 Ordered By: Elsie Belcher Referrals: Didier Malik MD [Physician] - Benny Davis MD [Primary Care Provider] - Patient Instructions: Ureteral Stones (ED) Activity Restrictions/Additional Instructions: As we discussed case management should contact you shortly to set you up to see Dr. Malik this week for further evaluation. You need to continue to push fluids as much as possible. Begin straining your urine with a strainer provided and bring stone with you to urology appointment if you pass it. You need to return to the emergency department for worsening or uncontrollable pain, inability to hold down your medications, fevers greater than 100.4, or any other concerns you may have. I hope you begin to feel better soon. Coding Level of Care Code ED [employer] Manager for Chg Fwd Exam Comprehensive
[2021-07-27 08:26] LABS: Basophils % 0.4 %; Eosinophils # 0.1 10^3/uL (0.0-0.8); Eosinophils % 0.9 %; Hematocrit 41.3 % (42.0-52.0); Hemoglobin 13.9 g/dL (11.7-16.6); Lymphocytes # 1.2 10^3/uL (0.8-4.8); Lymphocytes % 13.8 %; Mean Corpuscular HGB Conc 33.7 g/dL (30.0-36.0); Mean Corpuscular Hemoglobin 29.6 pg (28.0-34.0); Mean Corpuscular Volume 88.1 fl (80-94); Mean Platelet Volume 9.7 fL (7.4-10.4); Monocytes # 0.6 10^3/uL (0.2-0.9); Monocytes % 7.2 %; Neutrophils # 6.53 10^3/uL (1.8-7.7); Neutrophils % 77.2 %; Nucleated Red Blood Cells % 0 %; Platelet Count 185 10^3/cmm (130-400); Red Blood Count 4.69 10^6/uL (4.1-5.3); Red Cell Distribution Width 12.3 % (12.1-15.1); White Blood Count 8.5 10^3/uL (4.0-10.0)
[2021-07-27 08:37] VITALS: RESP 18
[2021-07-27] MEDS: sodium chloride 0.9% 1,000 ML 999 ML IV (08:37)
[2021-07-27] MEDS: morphine 4 mg/mL SDV 1 mL IVP (08:37)
[2021-07-27] MEDS: ondansetron 2 mg/ML SDV 2 mL 4 MG IVP (08:38)
[2021-07-27 08:46] LABS: Alanine Aminotransferase 23 U/L (0-41); Albumin Level 4.2 g/dL (3.5-5.2); Alkaline Phosphatase 99 IU/L (40-130); Anion Gap 18.6 (5-19); Aspartate Amino Transferase 16 U/L (0-40); Blood Urea Nitrogen 19 mg/dL (6-20); Calcium 8.8 mg/dL (8.5-10.5); Carbon Dioxide 21 mmol/L (22-29); Chloride 104 mmol/L (98-107); Globulin 2.4 g/dL (1.3-4.6); Glomerular Filtration Rate 43.2 mL/min (90-130); Glucose 128 mg/dL (65-115); Osmolality Calculated 292 mOsm/kg (285-295); Potassium 4.6 mmol/L (3.5-5.1); Sodium 139 mmol/L (136-145); Total Bilirubin 0.2 mg/dL (0.15-1.2); Total Protein 6.6 g/dL (6.6-8.7)
[2021-07-27] MEDS: ketorolac 60 mg/2 mL INJ 30 MG IVP (09:25)
[2021-07-27 10:59] LABS: Add Urine Microscopic? NO; Charge for UA Resulting for Rev
[2021-07-27 11:16] LABS: Bilirubin Urine Neg (Negative); Blood Urine Neg (Negative); Glucose Urine UA Norm (Normal); Ketones Urine Negative (Negative); Leukocyte Esterase Urine Negative (Negative); Nitrate Urine Negative (Negative); Protein Urine Neg (Negative); Urine Appearance Clear (CLEAR); Urine Color Yellow (Yellow); Urobilinogen Urine Norm (Negative); pH Urine 5 (5-7)
[2021-07-27 12:02] VITALS: BP 141/94; PULSE 88; RESP 15; O2SAT 98
[2021-07-27 12:24] VITALS: BP 141/94; PULSE 88; RESP 15; O2SAT 98
--- NOTE | 2021-07-27 12:41 | DCPLANNER ---
quality assurance manager had message to schedule a follow up appointment for patient with Dr. Malik. quality assurance manager emailed patients information to Mariano Herzog and Julie in the office of Dr. Malik. Patients information will be printed for review. Clinic will call patient with appointment information.
--- NOTE | 2021-07-30 08:21 | DCPLANNER ---
Patient had an appointment scheduled for 07.28.[address] Malik - patient did attend appointment.
== END 2021-07-27 12:25 | disposition home or self-care (01) ==
PROVIDERS: Emergency Provider Physician Assistant; PCP Family Medicine
DX: N20.1 Calculus of ureter (principal)
CPT/HCPCS: 74176; 80053; 81003; 85025; 96361; 96374; 96375; 99284; J1885; J2270; J2405; J7030

== ENCOUNTER 2021-07-28 12:06 | Outpatient (CLI) | payer BC, SELFPAY ==
--- NOTE | 2021-07-28 12:14 | XR_ITS ---
WS: [id number] Exam: XR KUB [id number] Date/Time of Exam: 07/28/2021 12:14 PM Reason For Exam: UVJ STONE No bowel obstruction or free air. No sign of organ enlargement. No calcifications seen in the region of the kidneys. Nonspecific bilateral pelvic calcifications are noted. 2 mm calcification seen along the left psoas margin just above the pelvic brim. This is nonspecific. XR/XR KUB [id number] IMPRESSION: 1. No acute abdominal finding. 2. Nonspecific 2 mm calcification seen along the left psoas margin just above t he left iliac crest.
== END 2021-07-28 12:07 | disposition home or self-care (01) ==
LOC: RAD 12:12
PROVIDERS: PCP Family Medicine; Visit Provider Urology
DX: N20.1 Calculus of ureter (principal)
CPT/HCPCS: 74018; 82365; 88300